=== PATIENT | female | born 1990 | race Two or more races ===

== ENCOUNTER 2018-07-08 14:18 | Inpatient (IN) | payer OTHER ==
[~2018-07-08] VITALS: Ht 165.1 cm; Wt 95.3 kg
[~2018-07-08 14:18] MED LIST: FLONASE16 GM NASAL; IBUPROFEN800 MG PO; ONE-A-DAY PREN1 EAC1; ORPH100T PO; ZYRTEC10 MG PO
== END 2018-07-13 12:20 | DRG 831 ==
LOC: OBS/DEL 14:18 → EDBD 14:18 → OBS/DEL 07-09 14:51 → OB/GYN 07-09 14:51 → LDR 07-09 14:51 → OB/GYN 07-09 19:35
PROVIDERS: ADMIT Obstetrics & Gynecology Obstetrics
PROC: BY4FZZZ Ultrasonography of Third Trimester, Single Fetus (ICD-10-PCS; principal; 2018-07-09)
PROC: 4A1HXCZ Monitoring of Products of Conception, Cardiac Rate, External Approach (ICD-10-PCS; 2018-07-09)
DX: O23.33 Infections of other parts of urinary tract in pregnancy, third trimester (principal); O60.03 Preterm labor without delivery, third trimester; O99.013 Anemia complicating pregnancy, third trimester; D64.89 Other specified anemias; Z34.03 Encounter for supervision of normal first pregnancy, third trimester

== ENCOUNTER 2018-07-23 14:31 | Outpatient (CLI) | payer OTHER | END 2018-07-24 14:10 | disposition home or self-care (01) | LOC: OBS/DEL 14:31 | DX: O60.03 Preterm labor without delivery, third trimester (principal); Z34.03 Encounter for supervision of normal first pregnancy, third trimester ==